=== PATIENT | female | born 1945 | race Caucasian/White ===

== ENCOUNTER 2018-04-29 09:52 | Emergency (ER) | payer OTHER ==
[2018-04-29 10:07] VITALS: BP 167/88
--- NOTE | 2018-04-29 10:15 | EDPHY ---
HPI/HX/ROS/PE/MDM Narrative: CHIEF COMPLAINT: Fall, L wrist pain HPI: This patient is a healthy 72 year old female. She states "I just broke my wrist ". This morning, she was at the gas station and tripped over the gas hose. She caught herself on her outstretched left wrist. She struck her face on the ground as well when she fell and complains of mild pain and abrasions to her nose. She denies any loss of consciousness. No headache or neck pain. The patent is not anticoagulated. No other recent trauma. She has no further complaints. REVIEW OF SYSTEMS: A comprehensive 10 system review of systems is otherwise negative aside from elements mentioned in the history of present illness and medical decision making. PMH: Denies. SOCIAL HISTORY: Single. Employed. Does not abuse tobacco, drugs, or alcohol. PHYSICAL EXAM: General:Patient is alert, in no acute distress. ENT:Eyes are normal to inspection. Abrasions over bridge of nose, no obvious deformity or swelling. ENT inspection otherwise normal. Neck: Normal inspection. Full range of motion. Respiratory:No respiratory distress. Cardiovascular: Regular rate and rhythm. Strong peripheral pulses. Normal cap refill. Skin: Normal color. No rash. Warm and dry. Extremities: Left arm: Swelling and mild deformity to radial aspect of left wrist. Otherwise normal extremity exam. Neuro: Oriented x3. Normal motor function. Normal sensory function. ED Course: 72 y/o female presents with left wrist pain and obvious deformity following a mechanical fall this morning. Plan for x-ray for further evaluation. 10:33 Reviewed x-ray of left wrist. Patient has distal radius fracture. Reassessed patient. Discussed imaging results. She declines reduction in the emergency department today. Plan to splint under standard ED protocol. Plan to discharge home in good condition with referral to data management specialist. Follow up and return precautions discussed. The patient is comfortable with this plan. - Data Points Imaging Results: Imaging Impressions Wrist X-Ray 04/29/18 10:09 Impression: 1.Dorsally angulated intra-articular distal radial fracture. 2. Possible injury of the perilunate ligaments. 3. Osteoporosis. This patient might benefit from a DEXA scan. Imaging: I viewed and interpreted images myself General Time Seen by Provider: 04/29/18 10:09 Initial Vital Signs: Initial Vital Signs Temperature (C) 36.6 C 04/29/18 10:04 Heart Rate 80 04/29/18 10:04 Respiratory Rate 18 04/29/18 10:04 Blood Pressure 167/88 H 04/29/18 10:04 O2 Sat (%) 95 04/29/18 10:04 O2 Delivery Mode Room Air Allergies/Adverse Reactions: No Known Allergies Allergy (Unverified 04/29/18 10:04) Departure - Departure Disposition: Home, Routine, Self-Care Clinical Impression: Distal radius fracture, left Qualifiers: Encounter type: initial encounter Fracture type: closed Fracture morphology: other intra-articular Qualified Code(s): S52.572A - Other intraarticular fracture of lower end of left radius, initial encounter for closed fracture Condition: Good Instructions: Arm Fracture in Adults (ED), Wrist Fracture in Adults (ED) Additional Instructions: Rest, ice, elevation. Follow up with an orthopedic surgeon within one week. Wear splint at all times until reevaluation. Return to the emergency department for worsening pain, swelling, numbness, weakness or other concerns. Adult Pain & Fever Control: We recommend Acetaminophen (Tylenol) and Ibuprofen (Motrin,Advil) for pain and fever control. When fever is high or pain severe, both drugs can be used at the same time, but at different intervals. Please note the time differences. Your dose is: Acetaminophen 650mg every 4 to 6 hours Ibuprofen 600mg every 6-8 hours with food Note: do not take Acetaminophen with Hydrocodone (Vicodin, Lortab) or Oxycodone (Percocet). These medications also contain Acetaminophen. No more than 3000mg of Acetaminophen should be taken in 24 hours (for an adult). Referrals: Claudia Tellez MD [Primary Care Provider] - As per Instructions Osman Morrison MD [Medical Doctor] - As per Instructions Report Scribed for: Emmanuel Perez Report Scribed by: Jacki Cochran Date of Report: 04/29/18 Time of Report: 10:36 Physician Review and Approval Statement: Portions of this note were transcribed by an ED scribe. I personally performed the history, physical exam, and medical decision making; and confirm the accuracy of the information in the transcribed note.
== END 2018-04-29 11:00 | disposition home or self-care (01) ==
DX: S52.572A Other intraarticular fracture of lower end of left radius, initial encounter for closed fracture (principal); W01.198A Fall on same level from slipping, tripping and stumbling with subsequent striking against other object, initial encounter; Y92.524 Gas station as the place of occurrence of the external cause
CPT/HCPCS: 73110; 99283; L3807

== ENCOUNTER 2018-06-02 08:53 | Emergency (ER) | payer OTHER ==
[2018-06-02] MEDS ORDERED: DEXAMETHASONE 10 MG/ML VIAL IVP ONE (09:36)
[2018-06-02] MEDS ORDERED: METOCLOPRAMIDE 10 MG/2 ML VIAL IVP ONE (09:36)
[2018-06-02] MEDS ORDERED: KETOROLAC 30 MG/1 ML SDV IVP ONE (09:36)
--- NOTE | 2018-06-02 09:49 | EDPHY ---
General Time Seen by Provider: 06/02/18 09:16 Narrative: CLINICAL IMPRESSION: Non intractable headache, nausea, and neck discomfort ASSESSMENT/PLAN: 72-year-old female presents to the emergency department with gradual onset right -sided headache over the last 3 days, reportedly getting worse each day, associated with nausea and neck tightness. No reported trauma, injury, chiropractic adjustment, MVA or deep tissue massage, and patient reports no history of chronic headaches or migraines. She is alert, oriented with no focal neurological deficits and an NIH score of 0. However given her age, history of new onset headache progressively getting worse, and neck pain with nausea I recommended CT and CTA which patient agrees to. These were read by Dr. Martin showing a right parasellar partially calcified lesion measuring 19 x 17 mm that is nonenhancing. Differential diagnosis includes thrombosed versus calcified aneurysm verses a calcified meningioma. I discussed patient's CT findings with Dr. Nath from neurosurgery. He did not feel that patient's headache today was likely due to these findings and felt that given her headache improved with IV analgesics, she could be followed up as an outpatient in his office this week. She may need an MRI/MRA. I discussed Neurosurgery recommendations with the patient and I did offer her an MRI/MRA in the emergency department today but she does not wish to pursue further imaging at this time. She is completely symptom free after IV analgesics. Neurosurgery referral and contact information provided. PCP follow-up recommended. Case discussed at length with Dr. Wilks. Warning signs for return to ED sooner outlined in person and discharge papers. DIFFERENTIAL DX: Differential diagnosis for headache includes but not limited to subarachnoid hemorrhage, migraine headache, migraine varient headache, tension headache and infectious causes such as meningitis, pharyngitis and sinusitis. ED PROCEDURES: See lab and/or imaging results below ED COURSE: 9:45 a.m.: Patient seen and assessed by myself. Discussed with Dr. Wilks. Initially patient is refusing CT scan however I had a long discussion with her given her symptoms and concerning history, specifically age, new headache, progressively worsening headache, and neck pain with nausea. Patient has agreed to CT, CTA. I will have registration discuss cost with her. She does have insurance. She has no focal neurological deficits on exam. 11:15 a.m.: ED RN reports patient headache is now gone. Awaiting CT/CTA results. 12:10 p.m.: CT CTA results discussed with Dr. Martin. Patient has a right parasellar partially calcified lesion measuring 19 x 17 mm that is not enhancing. Differential includes a thrombosed versus calcified aneurysm verses a calcified meningioma. Apparently the MCA does wrap around this. I discussed with patient she has never had any prior CT head imaging. I will discussed with Neurosurgery. 12:[address] Rizvi from neurosurgery. He is unable to visualize films at this time but will see if someone from his office can. Low suspicion that this lesion could be causing her headaches. He believes given that she is symptom free after IV analgesics that she can follow up as an outpatient with him in office and probably receive MRI/MRA with and without contrast. 12:30 P.M.: Neurosurgery recommendations discussed with the patient. Patient would like to leave, she does not want any further imaging today. She continues to be symptom free. She will however follow-up as an outpatient. Contact information for Dr. Nath will be provided. Warning signs return to ED sooner outlined and discharge. CHIEF COMPLAINT: Headache, nausea HPI: 72-year-old otherwise healthy female presents to the emergency department with her significant other for concerns of gradual onset headache for the last 3 days , reportedly getting worse each day, awakening her from sleep at night, and associated with nausea and neck pain. Patient reports having a ground level fall 1 month ago sustaining a closed left wrist fracture requiring surgery. She does report hitting her forehead during the fall but did not have loss of consciousness. She was seen in this ED, did not have CT scan of the head at that time. No reports of dizziness, vertigo, vomiting, altered mental status, seizures. Patient reports "I am not a headache person". She has been told by her orthopedic surgeon not to take ibuprofen, and does not like taking Tylenol. She had leftover oxycodone from her surgery and has taken for total tablets over the last 3 days but reports her pain has persisted. She currently reports headache 8/10. No upper extremity weakness or numbness. No prior neck injury or surgery. No deep tissue massage a chiropractic adjustment. She reports she is worried she has an aneurysm. PAST MEDICAL HISTORY: None reported See nurse/triage notes for additional history if applicable Pertinent Past Surgical History: Recent ORIF left wrist Family History: Noncontributory Social History: Otherwise healthy, nonsmoker REVIEW OF SYSTEMS: All other systems negative Constitutional: No fever, no chills, appetite change. Eyes: No discharge, vision change, positive photophobia ENT: No sore throat, congestion, ear pain. Cardiovascular: No chest pain, no palpitations. Respiratory: No cough, no shortness of breath. Gastrointestinal: No abdominal pain, positive nausea, no vomiting, diarrhea. Musculoskeletal: No back pain, positive for reproducible neck pain joint swelling, joint pain, myalgias. Skin: No rashes, color change. Neurological: Positive for headache, denies dizziness and vertigo, weakness. PHYSICAL EXAM: General Appearance: Alert, oriented, appropriate, cooperative, NAD, well hydrated, non-toxic appearing, hypertensive no hypoxia. HEENT: TMs are clear bilaterally no perforation or FB, no injection, no evidence of serous or mucopurulent otitis. No Byrne sign or hemotympanum Oropharynx clear is no erythema or exudates, no tonsillar hypertrophy or asymmetry. Dentition without abnormality. Eyes: PERRLA, no acute vision change, nystagmus, swelling, discharge, pain or photosensitivity. Conjunctiva pink, no pallor or injection Neck: Supple, nontender, no lymphadenopathy, no midline pain, FROM, no meningismus. Reproducible pain along the paraspinal muscles right greater than left extending into the right trapezius Respiratory: There are no retractions, lungs are clear to auscultation. Cardiac: Regular rate and rhythm, no murmurs or gallops. Gastrointestinal: [Abdomen is soft, nontender Neurological: Alert and oriented x 3, CN 2-12 grossly intact, normal gait no ataxia, DTR's intact, normal sensation and strength Skin: Warm, dry, no rashes, no nodules on palpation. Musculoskeletal: Extremities are symmetrical, full range of motion, no tenderness, deformity, swelling, or erythema. Psychiatric: Patient is oriented X 3, there is no agitation. MEDICAL DECISION MAKING: Patient was seen independently. Secondary supervising physician at time of evaluation was Dr. Wilks . Diagnosis: Non tract ball headache, nausea, neck tightness. New, requires workup Summary: See Assessment and Plan for summary of ED visit Clinical lab tests: ordered / reviewed. Independent visualization of images, tracing, or specimens: Yes. Decision to obtain medical records or history from someone other than the patient: Patient's significant other Review / Summarize previous medical records: None available Discussed patient with another provider: Dr. Wilks, Dr. Nath, radiology Patient Progress: Improved, stable for discharge. - Diagnostics Imaging Results: Imaging Impressions Head CT 06/02/18 09:49 Impression: 1. Partially calcified mass along the anteromedial aspect of the right middle cranial fossa in the parasellar location probably representing partially calcified meningioma. Partially calcified aneurysm is felt to be possible but less likely. Comparison with any prior imaging would be helpful for further characterization. 2. No acute intracranial abnormality seen. If symptoms worsen, additional imaging may be necessary. Findings discussed with Loy SCOTT at 1206 hour, 06/02/2018. Head CTA 06/02/18 09:49 Impression: 1. Normal CT angiogram of the neck. 2. Normal CT angiogram of the craig of [place] with normal variation, as detailed above. 3. No evidence of enhancement associated with the calcified lesion right parasellar location. This probably represents partially calcified meningioma. Comparison with prior outside CT imaging would be helpful to confirm stability. Note: All calculations were performed using NASCET criteria. Findings discussed with Loy SCOTT at 12:08 hour, 06/02/2018. Neck CTA 06/02/18 09:49 Impression: 1. Normal CT angiogram of the neck. 2. Normal CT angiogram of the craig of [place] with normal variation, as detailed above. 3. No evidence of enhancement associated with the calcified lesion right parasellar location. This probably represents partially calcified meningioma. Comparison with prior outside CT imaging would be helpful to confirm stability. Note: All calculations were performed using NASCET criteria. Findings discussed with Loy Ramirez PAC at 12:08 hour, 06/02/2018. - History Smoking Status: Never smoked - Objective Vital Signs: Initial Vital Signs Temperature (C) 36.9 C 06/02/18 08:56 Heart Rate 85 06/02/18 08:56 Respiratory Rate 17 06/02/18 08:56 Blood Pressure 162/87 H 06/02/18 08:56 O2 Sat (%) 95 06/02/18 08:56 O2 Delivery Mode Room Air Allergies/Adverse Reactions: No Known Allergies Allergy (Verified 06/02/18 08:56) Home Medications: Medication Instructions Recorded Oxycodone HCl 06/02/18 Laboratory Results: Laboratory Results 06/02/18 10:00 06/02/18 10:00 Sodium 134 mEq/L L mEq/L (135-145) Potassium 4.1 mEq/L mEq/L (3.5-5.2) Chloride 101 mEq/L mEq/L (97-110) Carbon Dioxide 23 mEq/l mEq/l (22-31) Anion Gap 10 mEq/L mEq/L (6-14) BUN 13 mg/dL mg/dL (7-23) Creatinine 0.8 mg/dL mg/dL (0.6-1.0) Estimated GFR > 60 Glucose 119 mg/dL H mg/dL (70-100) Calcium 9.4 mg/dL mg/dL (8.5-10.4) Medications Given: Discontinued Medications Dexamethasone (Decadron Injection) 10 mg IVP EDNOW ONE Stop: 06/02/18 09:37 Last Admin: 06/02/18 10:09 Dose: 10 mg Diphenhydramine HCl (Benadryl Injection) 25 mg IVP EDNOW ONE Stop: 06/02/18 09:37 Last Admin: 06/02/18 10:06 Dose: 25 mg Ketorolac Tromethamine (Toradol) 15 mg IVP EDNOW ONE Stop: 06/02/18 09:37 Last Admin: 06/02/18 10:04 Dose: 15 mg Metoclopramide HCl (Reglan Injection) 10 mg IVP EDNOW ONE Stop: 06/02/18 09:37 Last Admin: 06/02/18 10:14 Dose: 10 mg Departure - Departure Disposition: Home, Routine, Self-Care Clinical Impression: Headache Qualifiers: Headache chronicity pattern: unspecified pattern Intractability: not intractable Condition: Good Instructions: Acute Headache (ED) Additional Instructions: DISCHARGE INSTRUCTIONS FROM YOUR DOCTOR Thank you for visiting our emergency department today. You were treated by a physician food and beverage assistant manager today and your case was reviewed with our ED Attending physician. Please keep in mind that discharge from the emergency department does not mean that there is nothing wrong - it simply means that we have not identified an emergency condition that requires further evaluation or treatment in the hospital. You should always plan to follow up with primary care for re- evaluation of your condition in the next 2-3 days. If you have been referred to a specialist, please call as soon as possible (today or tomorrow) to schedule your follow up appointment at the appropriate time. DIAGNOSTIC WORKUP IN THE EMERGENCY DEPARTMENT INCLUDED LABORATORY EVALUATION, CT, AND CT ANGIOGRAM OF THE HEAD AND NECK. YOUR IMAGES WERE READ BY DR. MARTIN SHOWING A 19 X 17 MM RIGHT PARASELLAR PARTIALLY CALCIFIED LESION. IT WAS FELT BY RADIOLOGY THIS COULD REPRESENT EITHER A CALCIFIED MENINGIOMA VERSUS A CALCIFIED ANEURYSM. I SPOKE WITH DR. NATH FROM [facility] WHO DOES NOT FEEL THAT HER HEADACHE TODAY WAS CAUSED BY THIS LESION HOWEVER HE DOES FEEL THIS MAY BE AMENABLE TO FURTHER IMAGING STUDIES. HE IS HAPPY TO SEE YOU THIS WEEK, POSSIBLY EARLY TOMORROW. PLEASE CONTACT HIS OFFICE FOR FOLLOW-UP. HE MAY RECOMMEND AN MRI/MRA. PLEASE MONITOR SYMPTOMS AT HOME. RETURN TO THE EMERGENCY DEPARTMENT IMMEDIATELY FOR SEVERE HEADACHE, ALTERED MENTAL STATUS, SEIZURES, VOMITING, SEVERE DIZZINESS OR VERTIGO, OR ANY OTHER CONCERN. People present with illnesses and injuries in different ways, and it is always possible that we have missed something. You may always return for re-evaluation if symptoms worsen or if they are not improving or if you develop new/different symptoms. Again, thank you for choosing our emergency department. We hope that you feel better. Referrals: Claudia Tellez MD [Primary Care Provider] - As per Instructions Brant Nath MD [Medical Doctor] - 1-2 days without fail
[2018-06-02] MEDS ORDERED: IOPAMIDOL (ISOVUE 370) 100 ML BTL IV ONE (10:04)
[2018-06-02 13:18] VITALS: BP 124/85
== END 2018-06-02 13:17 | disposition home or self-care (01) ==
DX: R51 Headache (principal); R11.0 Nausea; M54.2 Cervicalgia
CPT/HCPCS: 70450; 70496; 70498; 96374; 96375; 99285; J1100; J1200; J1885; J2765; Q9967